=== PATIENT | male | born 1990 | race Caucasian/White ===

== ENCOUNTER 2022-12-18 15:52 | Outpatient (REF) | payer MEDICAID, SELFPAY ==
[2022-12-18 18:49] LABS: Hemoglobin A1C 5.4 % (<5.7)
[2022-12-18 18:58] LABS: ALT 60 U/L (16-63); AST 33 U/L (15-37); Alkaline Phosphatase 71 U/L (46-116); Anion Gap 8.7 mmol/L (3-11); BUN 22 mg/dL (7-18); Bilirubin, Total 0.5 mg/dL (0.2-1.0); CO2 27.3 mmol/L (21.0-32.0); CREATININE 1.2 mg/dL (0.70-1.30); Calcium 9.2 mg/dL (8.5-10.1); Calculated LDL 179 mg/dL (<100); Chloride 106 mmol/L (98-107); Cholesterol 243 mg/dL (<200); Estimated GFR 81.89 (mL/min/1.73m2); Glucose 107 mg/dL (74-106); HDL Cholesterol 45 mg/dL (40-60); Potassium 4.3 mmol/L (3.5-5.1); Sodium 142 mmol/L (136-145); Total Protein 7.3 g/dL (6.4-8.2); Triglyceride 95 mg/dL (<150)
== END 2022-12-18 15:53 | disposition home or self-care (01) ==
LOC: NCHCN 15:52
PROVIDERS: Visit Provider Nurse Practitioner Family
DX: Z13.1 Encounter for screening for diabetes mellitus (principal); Z13.220 Encounter for screening for lipoid disorders
CPT/HCPCS: 80053; 80061; 83036